=== PATIENT | female | born 1940 | race Caucasian/White ===

== ENCOUNTER 2019-06-10 18:31 | Inpatient (IN) | payer OTHER ==
[~2019-06-10] VITALS: Ht 165.1 cm; Wt 79.8 kg
[~2019-06-10 18:31] MED LIST: ATIVAN1 MG PO; CARDIZEM CD 18180 M3 PO; COZAAR 50 MG TA50 M2 PO; ENOXAPARIN40 MG/0.1 SUBQ; GABAPENTIN 100100 MG PO; HYDROCHLOROTH12.5 M1 PO; METFORMIN HCL500 MG PO; MOBIC7.5 MG PO; OMEPRAZOLE40 MG PO; OXYBUTYNIN 5 MG5 M2 PO; ZOLOFT50 MG PO
[2019-06-10 18:33] VITALS: BP 169/69
[2019-06-10 18:49] LABS: ABSOLUTE NEUTROPHILS 6.1 thou/uL (1.4-8.2); BASOPHILS 0.4 % (0.0-2.0); EOSINOPHILS 0.4 % (0.0-3.0); HEMATOCRIT 33.3 % (37.0-47.0); HEMOGLOBIN 11.2 gm/dL (12.0-15.0); LYMPHOCYTES 10.5 % (24.0-44.0); MCH 29.2 pg (26.0-34.0); MCHC 33.6 g/dL (28.0-37.0); MCV 86.9 fL (80.0-100.0); MONOCYTES 6.4 % (1.0-8.0); PLATELET COUNT 214 thou/uL (150-400); POLYS 82.3 % (36.0-66.0); RBC 3.83 mil/uL (4.20-5.00); RDW 15.1 % (10.5-14.5); WBC 7.4 thou/uL (4.0-11.0)
[2019-06-10 18:58] LABS: CALCIUM 9.5 mg/dL (8.5-10.1); CREATININE 1.9 mg/dL (0.6-1.0); POTASSIUM 3.9 mmol/L (3.5-5.1)
[2019-06-10 18:59] LABS: URINE BILIRUBIN NEGATIVE (Negative); URINE BLOOD NEGATIVE (Negative); URINE CLARITY CLEAR; URINE COLOR YELLOW; URINE GLUCOSE-RANDOM* NEGATIVE (Negative); URINE KETONES NEGATIVE (Negative); URINE LEUKOCYTES-REFLEX NEGATIVE (Negative); URINE PROTEIN (DIPSTICK) NEGATIVE (Negative); URINE UROBILINOGEN 0.2 E.U./dl (0.2-1.0)
[2019-06-10 19:00] LABS: URINE NITRITE-REFLEX POSITIVE (Negative)
[2019-06-10 19:10] LABS: BACTERIA-REFLEX >30 Many /HPF (None Seen); CASTS None Seen /LPF (None Seen); SQUAMOUS None Seen /LPF (0-3); URINE RBC None Seen /HPF (0-2); URINE WBC-REFLEX 0-5 Rare /HPF (0-5)
[2019-06-10 19:11] LABS: CRYSTALS None Seen /LPF (None Seen)
[2019-06-10 20:46] VITALS: BP 141/74
[2019-06-10 21:45] VITALS: BP 124/62
[2019-06-10 22:35] LABS: CHOLESTEROL 162 mg/dL (<200); HDL CHOLESTEROL 63 mg/dL (>40); LDL CHOLESTEROL 65 mg/dL (<100); SERUM ASSESSMENT Clear; TC:HDL 2.6 Ratio (Not establshd); TRIGLYCERIDE 170 mg/dL (<150); VLDL 34 mg/dL (<40)
[2019-06-10 23:00] LABS: FOLIC ACID 19.4 ng/mL (8.6-58.9); TSH 0.5 uIU/mL (0.358-3.740)
[2019-06-11] VITALS (7 sets, daily range): BP systolic 116–149; BP diastolic 52–71
[2019-06-11 04:34] LABS: CALCIUM 8.5 mg/dL (8.5-10.1); CREATININE 1.9 mg/dL (0.6-1.0); POTASSIUM 3.8 mmol/L (3.5-5.1)
--- NOTE | 2019-06-11 06:09 | NUR ---
RECEIVED REPORT FROM [facility] ED RN AROUND 2129.PATIENT ARRIVED TO ROOM 203 ACCOMPANIED BY HER GRANDDAUGHTER.PATIENT A/O X 4.FORGETFUL.ABLE TO WALK TO THE BATHROOM WITH STANDBY ASSIST.MONITOR SHOWS AFIB WITH RVR INITIALLY AND ON CARDIZEM GTT THEN CONVERTED TO SINUS TACHY THEN SINUS RHYTHM.AFEBRILE ALL NIGHT UNTIL THIS AM,TEMP IS 102,TYLENOL GIVEN.SPO2 88%,PLACED ON O2 2L NC.WILL CONTINUE PLAN OF CARE.
--- NOTE | 2019-06-11 10:23 | EKG ---
[address] [place] [employer] [place] [address] ELECTROCARDIOGRAM REPORT Name: YASIR YOUNGER Room #: 203-P ADM IN M.R.#: [id number] Admission: 06/10/19 Attend Phys: Bryant Dutta MD Discharge: Date of : 40 Report #: [id number] THIS REPORT FOR: //name// [facility] ED Test Date: 2019-06-10 Test Time: 19:58:17 Pat Name: YASIR YOUNGER Department: Room: 203 Gender: F Biofuels Engineering Manager: LORRAINE : 1940 Requested By: Tremaine Alvarenga Order Number: [id number] MD: Jayden Siddiqui Measurements Intervals [place] Rate: 150 P: NE: QRS: 3 QRSD: 89 T: 33 QT: 303 QTc: 479 Interpretive Statements Atrial fibrillation with rapid V-rate Poor R-wave progression Nonspecific ST segment abnormalities Compared to ECG 03/20/2016 22:46:06 Sinus rhythm no longer present First degree AV block no longer present Electronically Signed On 06-11-2019 10:23:03 GORE MAKER by Jayden Siddiqui [email or web address] <ELECTRONICALLY SIGNED> By: Jayden Siddiqui MD 11/05/20 1023 57 57 Jayden Siddiqui MD /EPI
--- NOTE | 2019-06-11 19:46 | NUR ---
ASSUMMED PT CARE AT APPROXIMATELY 0700. PT A&O X4. ASSESSMENT CHARTED. FALL PRECAUTIONS IN PLACE. PT DENIES HAVING CHEST PAIN. PT DENIES HAVING ACUTE PAIN. PT STATES SHE BECOMES SOB ON EXERSION. PT O2 SAT STABLE. BLOOD SUGARS STABLE. PT FEBRILE NEAR END OF SHIFT. GAVE PRN TYLENOL. FEBRILE AFTER TYLENOL. NOTIFIED DR. ORDERED IBUPROFEN. PT BECAME AFEBRILE AFTER IBUPROFEN. PT VITAL SIGNS STABLE. PT HAD AN INCREASE IN WEAKNESS THROUGHOUT THE SHIFT. NOTIFIED. ORDERED BLOOD CULTURES. BLOOD CULTURES DRAWN AT END OF SHIFT. COMMUNICATED WITH REFORESTATION WORKER NURSE TO MONITOR FOR THE RESULTS FOR BLOOD CULTURES. PT AND PT'S FAMILY EDUCATED ABOUT POC. PT AND PT'S FAMILY STATED UNDERSTANDING AND DENIED HAVING FURTHER QUESTIONS. PT COMFORTABLE IN BED. PT DENIES HAVING FURTHER CONCERNS. RHYTHMS STABLE AND CHARTED.
[2019-06-12] VITALS (8 sets, daily range): BP systolic 14–163; BP diastolic 67–91
--- NOTE | 2019-06-12 03:43 | NUR ---
ALERT.FORGETFUL.UP WITH ASSIST TO THE BEDSIDE COMMODE.COMPLAIN OF BURNING SENSATION WHEN URINATING.TYLENOL GIVEN.FINANCIAL INVESTMENT ADVISER WAS PAGED.WAITING FOR RESPONSE.PT WILL GO FOR A STRESS TEST TODAY.NPO SINCE MIDNIGHT.BEDTIME BLOOD GLUCOSE WAS 200.NO COVERAGE GIVEN DUE TO EPISODES OF LOW BLOOD GLUCOSE IN THE PAST ACCORDING TO THE PATIENT.MONITOR SHOWS AFIB/SINUS RHYTHM.POC CONTINUED.
[2019-06-12 04:47] LABS: CALCIUM 8.6 mg/dL (8.5-10.1); CREATININE 1.5 mg/dL (0.6-1.0); POTASSIUM 3.4 mmol/L (3.5-5.1)
--- NOTE | 2019-06-12 08:01 | HC ---
[facility] [place] [address] CONSULTATION Name: YASIR YOUNGER Room #: 203-P [facility] IN M.R.#: [id number] Admission: 06/10/19 Attend Phys: Justine Mayen Discharge: Date of : 40 Report #: [id number] THIS REPORT FOR: //name// CC: JONATAN physician/PCP Bryant Dutta DATE OF SERVICE: 06/11/2019 CARDIOLOGY CONSULTATION INDICATION: Atrial fibrillation. HISTORY OF PRESENT ILLNESS: This is a 78-year-old female with a history of diabetes mellitus, hypertension, SVT, GERD, arthritis, who presents with weakness and confusion. She has been visiting her granddaughter from [place]. Over the past several days, she has developed fever, weakness and confusion. Last week, she was very coherent and playing with her grandson. Over the weekend, she has developed weakness with change in her mental status. The patient is verbal, denies any chest pain or shortness of breath. In the ER, her rhythm was sinus, but converted to atrial fibrillation with a rapid ventricular rate. She was started on IV Cardizem. The patient is unsure if she has ever been diagnosed with AFib. She is on Cardizem, has a prior history of an SVT. PAST MEDICAL HISTORY: Diabetes mellitus, hypertension, SVT, DJD, GERD. ALLERGIES: CODEINE. MEDICATIONS: At home include Cardizem-CD 180 daily, omeprazole, Glucophage twice a day, Neurontin, losartan 50 mg daily, hydrochlorothiazide once a day. SOCIAL HISTORY: Denies tobacco use. FAMILY HISTORY: Negative for premature CAD. REVIEW OF SYSTEMS: A full 10-point review of systems was performed. Only the pertinent positives and negatives are described in the HPI. PHYSICAL EXAMINATION: VITAL SIGNS: Blood pressure is 130/60, heart rate is 80 beats per minute. GENERAL APPEARANCE: An elderly appearing female, in no acute distress. HEENT: Normocephalic, atraumatic. Oral mucosa moist. NECK: Supple. LUNGS: Clear to auscultation. CARDIAC: Regular rate and rhythm, S1, S2 positive. ABDOMEN: Soft, nontender. EXTREMITIES: Positive edema. No cyanosis. [facility] [address] [place] [address] CONSULTATION Name: YASIR YOUNGER Room #: 203-P ADM IN M.R.#: [id number] Admission: 06/10/19 Attend Phys: Justine Mayen Discharge: Date of : 40 Report #: [id number] LABORATORY VALUES: Sodium is 139, creatinine is 1.9. White count 7.4, hemoglobin is 11.2. Chest x-ray is no infiltrates. ASSESSMENT AND PLAN: 1. Atrial fibrillation, no prior history. She developed rapid atrial fibrillation while being observed in the ER. She was started on IV Cardizem and the rhythm has converted to sinus. The plan is to check a TSH level. She will need a cardiac evaluation including echocardiogram and ischemic workup. Continue with aspirin for now until her mental status returns to baseline. 2. Weakness/confusion, rule out infectious process. Urine cultures are pending. (?) Empiric antibiotics for now. 3. Hypertension, stable blood pressure. 4. Diabetes mellitus, continue with fingersticks. 5. Gastroesophageal reflux disease, continue with PPI. <ELECTRONICALLY SIGNED> By: Jayden Siddiqui MD 06/12/19 0801 1126 1802 Jayden Siddiqui MD /nt
--- NOTE | 2019-06-12 12:51 | NUR ---
DILTIAZEM DRIP INCREASED TO 20/HR FOR HR OF 138-150.
--- NOTE | 2019-06-12 15:55 | 2DMMODE ---
[facility] [address] [place] [address] 2 D/M-MODE ECHOCARDIOGRAM Name: ARENYASIR Room #: 203-P ADM IN M.R.#: [id number] Admission: 06/10/19 Attend Phys: Justine Perrin Discharge: Date of : 40 Report #: [id number] THIS REPORT FOR: //name// APPROVED REPORT Study performed: 06/12/2019 15:03:21 EXAM: Comprehensive 2D, Doppler, and color-flow Echocardiogram Patient Location: Echo lab Room #: 203 Status: routine BSA: 1.87 HR: 104 bpm BP: 163/88 mmHg Rhythm: NSR/Tachy Other Information Study Quality: Adequate Indications Atrial Fibrillation Hx: SVT, HTN, DM. 2D Dimensions RVDd: 28.66 mm IVSd: 12.00 (7-11mm) LVOT Diam: 20.77 (18-24mm) LVDd: 43.21 mm PWd: 12.19 (7-11mm) Ascending Ao: 33.76 (22-36mm) LVDs: 29.80 (25-40mm) Aortic Root: 33.06 mm Volumes Left Atrial Volume (Systole) Single Plane 4CH: 35.28 mL Single Plane 2CH: 50.43 mL LA ESV Index: 26.00 mL/m2 Aortic Valve AoV Peak Marcus.: 2.86 m/s AO Peak Gr.: 32.68 mmHg LVOT Max P.72 mmHg AO Mean Gr.: 18.90 mmHg AO V2 Mean: 2.09 m/s LVOT Max V: 1.20 m/s AO V2 VTI: 56.39 cm RAZIA Vmax: 1.42 cm2 Mitral Valve [facility] [address] [place] [address] 2 D/M-MODE ECHOCARDIOGRAM Name: YASIR YOUNGER Room #: 203-P [facility] IN ..#: [id number] Admission: 06/10/19 Attend Phys: Justine Perrin Discharge: Date of : 40 Report #: [id number] E/A Ratio: 0.8 MV Decel. Time: 106.24 ms MV E Max Marcus.: 0.99 m/s MV A Marcus.: 1.22 m/s MV PHT: 30.81 ms IVRT: 69.20 ms Pulmonary Valve PV Peak Marcus.: 1.09 m/s PV Peak Gr.: 4.77 mmHg Tricuspid Valve TR Peak Marcus.: 2.61 m/s RAP Estimate: 5.00 mmHg TR Peak Gr.: 27.27 mmHg PA Pressure: 32.00 mmHg Left Ventricle The left ventricle is normal size. There is normal LV segmental wall motion. Mild concentric left ventricular hypertrophy. Left ventricular systolic function is normal. LVEF is 60-65%. Mild diastolic dysfunction is present (impaired relaxation pattern). Right Ventricle The right ventricle is normal size. The right ventricular systolic function is normal. Atria The left atrium size is normal. The right atrium size is normal. Aortic Valve The aortic valve is normal in structure; moderately calcified. No aortic regurgitation is present. There is mild valvular aortic stenosis. Calculated aortic valve area is 1.5 cm2 with maximum pressure gradient of 33 mmHg and mean pressure gradient of 19 mmHg. Mitral Valve The mitral valve is normal in structure; mildly thickened. Mild mitral annular calcification. Trace mitral regurgitation. No evidence of mitral valve stenosis. Tricuspid Valve The tricuspid valve is normal in structure. Trace tricuspid regurgitation. Estimated PAP is 30-35mmHg. [facility] [address] [place] [address] 2 D/M-MODE ECHOCARDIOGRAM Name: YSAIR YOUNGER Room #: 203-P [facility] IN M.R.#: [id number] Admission: 06/10/19 Attend Phys: Justine Perrin Discharge: Date of : 40 Report #: [id number] Pulmonic Valve The pulmonary valve is normal in structure. There is no pulmonic valvular regurgitation. Great Vessels The aortic root is normal in size. The ascending aorta is normal in size. IVC is normal in size and collapses >50% with inspiration. Pericardium There is no pericardial effusion. <Conclusion> The left ventricle is normal size. Mild concentric left ventricular hypertrophy. Left ventricular systolic function is normal. Mild diastolic dysfunction is present (impaired relaxation pattern). The right ventricle is normal size. The left atrium size is normal. The aortic valve is normal in structure; moderately calcified. There is mild valvular aortic stenosis. Trace mitral regurgitation. Trace tricuspid regurgitation. Estimated PAP is 30-35mmHg. <ELECTRONICALLY SIGNED> By: Jayden Siddiqui MD 06/12/19 1555 1555 1555 Jayden Siddiqui MD /INF
--- NOTE | 2019-06-12 16:53 | NUR ---
ASSUMMED PT CARE AT APPROXIMATELY 0700. PT A&O X4. ASSESSMENT CHARTED. FALL PRECAUTIONS IN PLACE. PT DENIES HAVING CHEST PAIN. PT DENIES HAVING ACUTE PAIN. PT STATES SHE HAS SOB ON EXERSION. PT O2 SAT STABLE. VITAL SIGNS STABLE. BLOOD SUGARS STABLE. PT BECAME NAUSEATED DURING STRESS TEST. ANTI-EMETIC GIVEN. PT STATED NAUSEA RESOLVED. PT WENT INTO SVT DURING STRESS TEST. PT STARTED ON CARDIZEM DRIP. PT'S RHYTHM AND RATE ARE STABLE. PT AND PT'S FAMILY EDUCATED ABOUT POC. PT AND PT'S FAMILY STATED UNDERSTANDING AND DENIED HAVING FURTHER QUESTIONS. PT COMFORTABLE IN BED. PT AFEBRILE. PT DENIES HAVING FURTHER CONCERNS.
[2019-06-13] VITALS (9 sets, daily range): BP systolic 136–166; BP diastolic 60–87
[2019-06-13 05:14] LABS: CALCIUM 8.8 mg/dL (8.5-10.1); CREATININE 1.2 mg/dL (0.6-1.0); POTASSIUM 3.7 mmol/L (3.5-5.1)
--- NOTE | 2019-06-13 05:48 | NUR ---
ASSUMED PT CARE AT 1900. VSS.. PT A&0X3, SOMETIMES FORGETFULL. PT IS STEADY ON HER FEET, GETS UP WITH STANDBY TO THE BESIDE COMODE. PT WAS INITIALLY ST (LESS THAN 105) AT THE START OF THE SHIFT ON A 15ML/HR CARDIZEM DRIP HOWEVER THE NIGHT PROGRESSED, PT BECAME SR ON THE MONITOR. IN THE 70s, SO PT'S CARDIZEM TITRATED TO 10ML/HR THIS AM. PT HAD A TEMP OF 100.0 THIS AM, TYLENOL GIVEN, TO RECHECK TEMP IN AN HOUR. OTHERWISE, PT IS STABLE, NO COMPLAINTS OF PAIN OR DISCOMFORT, GOOD URINE OUTPUT, WILL CONTINUE TO MONITOR PER POC.
[2019-06-13] MEDS ORDERED: ELIQUIS5 MG PO (07:59)
[2019-06-13] MEDS ORDERED: TAMBOCOR 100 M100 M1 PO (08:00)
[2019-06-13] MEDS ORDERED: CEFUROXIME250 MG PO (08:01)
--- NOTE | 2019-06-13 09:56 | NUR ---
met with patient who reports she resides in [place] with her dtr. She is here at visiting and became weak. Her flight to return to [place] is Jun 28. At [facility] home multiple steps. Gdtr reports she is glad her heart is ok but she also brought her for weakness. patient reports last visit when she was in she broke her hip. She subsequently went to [facility] for skilled/post acute care. She reports it was good rehab. Patient to [facility] await therapy kvng.
--- NOTE | 2019-06-13 16:35 | NUR ---
spoke with therapy who reports home with HH. Sp with grandtr who is concern for dc home. Reports patient with fever last evening. She reports she is glad her heart good but concerned still confusion. Assured gdtr. Rn retook temp and updated gdtr. Gdtr reports patient has been at [facility] in past and agreeable to [facility]. Faxed referal for care. In speaking with gdtr she wants to sp with phys. Phys spoke with patients gdtr and alerted RN for dc tomorrow.
--- NOTE | 2019-06-13 17:00 | NUR ---
FAXED REFERRAL TO [facility] SPOKE WITH [facility] THEY WILL REVIEW AND WILL F/U IN THE AM. DP TO FOLLOW.
--- NOTE | 2019-06-13 18:17 | NUR ---
ASSESSMENT CHARTED. PT ALERT AND ORIENTED WITH FORGETFULNESS. VSS. DENIED HAVING PAIN OR DISCOMFORT. HAD NAUSEA X2 THIS SHIFT. PRN NAUSEA MED GIVEN WITH PARTIAL RELIEF. GILDA FIGUEROA D/C THIS AM. SR ON TELE. ORDERS GIVEN TO DISCHARGE PT TO HOME TODAY. GRANDDAUGHTER RAISED CONCERN REGARDING PT'S DISCHARGE TODAY WITHOUT EVALUATION FROM PT AND OT. MD AWARE. PLAN FOR DISCHARGE TOMORROW. NO CONCERNS AT THIS TIME. WILL CONTINUE TO MONITOR.
--- NOTE | 2019-06-13 19:21 | EKG ---
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: ALTON : 1940 Requested By: Cristi Martinez Order Number: [id number] MD: Sanjay Bower Measurements Intervals [place] Rate: 83 P: 20 OK: 182 QRS: -5 QRSD: 98 T: 44 QT: 409 QTc: 481 Interpretive Statements Sinus rhythm Probable anteroseptal infarct, old Compared to ECG 06/10/2019 19:58:17 Septal Q waves are more prominent Atrial fibrillation no longer present Electronically Signed On 06-13-2019 19:20:55 PLASTIC WELDER by Sanjay Bower [email or web address] <ELECTRONICALLY SIGNED> By: Sanjay Bower MD, [facility] 06/13/19 1920 0 Sanjay Bower MD, [facility] /EPI
[2019-06-14 04:40] VITALS: BP 175/86
--- NOTE | 2019-06-14 05:06 | NUR ---
ASSESMENT DOCUMENTED.PT BEEN RESTING THROUGH THE NOC.SR ON MONITOR TILL THIS AM AROUND 3 WHILE PT BECAME TACHYCARDIAC.VSS.PT C/O NAUSEA THAT WAS CONTROLLED WITH MEDS.HYPERTENSIVE ALONG WITH TACHYTCARDIA THIS MORNING FROM AROUND 3AM,ON EKG PT IN AFLUTTER WITH HR SUSTAINING IN 120S-130S.DIALTIZEM DOSE FOR THIS AM ADMINISTERED W/O HELPING,HR CONTINUES TO SUSTAIN IN 120S-130S,PT NOT SYMPTOMATIC,DENIES CHEST PAIN,PALPITATION OR ANY DISTRESS.DR YAGN NOTIFIED,ORDERED LOPRESSOR 5MG IV PUSH.PT ON RA W/O RESP DISTRESS.VOIDS PER BSC.IVF PER ORDERS.PT AWAKE AT THIS TIME,RESTING IN BED.WILL CONTINUES TO MONITOR PER POC.
[2019-06-14 07:53] VITALS: BP 193/100
[2019-06-14] MEDS ORDERED: GABAPENTIN 100100 MG PO (10:04)
[2019-06-14 11:17] LABS: HEMATOCRIT 32.8 % (37.0-47.0); HEMOGLOBIN 10.6 gm/dL (12.0-15.0); MCH 28.4 pg (26.0-34.0); MCHC 32.5 g/dL (28.0-37.0); MCV 87.4 fL (80.0-100.0); RBC 3.75 mil/uL (4.20-5.00); WBC 6.1 thou/uL (4.0-11.0)
[2019-06-14 11:30] LABS: CALCIUM 9.3 mg/dL (8.5-10.1); CREATININE 1.1 mg/dL (0.6-1.0); MAGNESIUM 1.5 mg/dL (1.8-2.4); PHOSPHORUS 2.9 mg/dL (2.5-4.9); POTASSIUM 3.2 mmol/L (3.5-5.1)
[2019-06-14 11:48] VITALS: BP 160/84
--- NOTE | 2019-06-14 12:23 | NUR ---
spoke with phys and gdtr. Patient with need for post acute care. interest in [facility] reviewed with gdtr qualifiers for acute rehab and requested [facility] liason review. She reports not a candidate due to no medical complexity. they are agreeable to referral to [facility]. [facility] accepting and submitting for auth.
--- NOTE | 2019-06-14 13:56 | NUR ---
FAXED REFERRAL TO [facility] RECEIVED CONFIRMATION AND LEFT MSG WITH BERTO IN ADM IF SHE CAN ACCEPT. DP TO FOLLOW.
[2019-06-14 16:00] VITALS: BP 189/89
--- NOTE | 2019-06-14 16:47 | NUR ---
ASSESSMENT CHARTED. PT ALERT AND ORIENTED WITH FORGETFULNESS. HAD HIGH BP THIS SHIFT. DR. PFEIFFER AWARE. NEW ORDERS NOTED. PLAN TO BE DISCHARGE IN AM TO REHAB. FALL PRECAUTION ENFORCED. WILL CONTINUE TO MONITOR.
[2019-06-14 19:40] VITALS: BP 159/75
[2019-06-15 02:06] LABS: GLYCOHEMOGLOBIN (HGB A1C) 6.8 % (4.8-5.6)
[2019-06-15 03:58] VITALS: BP 148/60
[2019-06-15 04:48] VITALS: BP 156/47; BP 156/474
--- NOTE | 2019-06-15 05:47 | NUR ---
ALERT,FORGETFUL.UP WITH ASSIST TO THE BEDSIDE COMMODE.DENIES PAIN.MONITOR SHOWS IN AND OUT SINUS ARHYTHMIA AND AFIB.GRANDDAUGHTER WAS CALLED LAST NIGHT FOR MED REC CLARIFICATION.UNABLE TO EDIT MED IN THE MED REC SHOWING IT CAN ONLY BE DONE ON DISCHARGE.WILL CONTINUE POC.
[2019-06-15 07:47] VITALS: BP 175/76
[2019-06-15 11:46] VITALS: BP 147/86
--- NOTE | 2019-06-15 13:06 | NUR ---
spoke with patient and gdtr. patient not stable for dc today. Malenar thought patient would dc today so she took off work. She requests caset call her once auth rec at [facility] so she can plan accordinally her work schedule. At this time [facility] does not auth.
--- NOTE | 2019-06-15 15:23 | NUR ---
FAXED CLINICAL UPDATE TO [facility] RECEIVED CONFIRMATION AND LEFT MSG WITH BERTO IN ADM WTG ON AUTH. DP TO FOLLOW.
[2019-06-15 16:00] VITALS: BP 187/89
--- NOTE | 2019-06-15 16:51 | EKG ---
[address] [address] ELECTROCARDIOGRAM REPORT Name: ELANDRO YOUNGERLEY Room #: 203-P ADM IN M.R.#: [id number] Admission: 06/10/19 Attend Phys: Justine Mayen Discharge: Date of : 40 Report #: [id number] THIS REPORT FOR: //name// [facility] Test Date: 2019-06-14 Test Time: 04:51:16 Pat Name: YASIR YOUNGER Department: Room: 203 P Gender: F Test Analyst: EDUARDA : 1940 Requested By: Yovani Armenta Order Number: [id number] MD: Sanjay Bower Measurements Intervals [place] Rate: 126 P: [place]: QRS: -16 QRSD: 89 T: 14 QT: 337 QTc: 488 Interpretive Statements Atrial flutter with predominant 2:1 AV block Anteroseptal infarct, age indeterminate Compared to ECG 06/13/2019 08:31:18 Sinus rhythm no longer present Electronically Signed On 06-15-2019 16:51:02 GROCERY STORE MANAGER by Sanjay Bower [email or web address] <ELECTRONICALLY SIGNED> By: Sanjay Bower MD, [facility] 06/15/19 1651 0451 0451 Sanjay Bower MD, [facility] /EPI
--- NOTE | 2019-06-15 17:01 | NUR ---
PT COMPLAINED OF NAUSEA WITH AMBULATION. DR PFEIFFER AWARE. GI CONSULTED. NEW ORDERS NOTED. NO CONCERNS AT THIS TIME. PROGRESSING WELL TOWARD DISCHARGE GOAL.
[2019-06-15 19:13] VITALS: BP 173/76
[2019-06-16 00:37] VITALS: BP 176/80
[2019-06-16 03:46] VITALS: BP 180/78
[2019-06-16 06:52] LABS: CALCIUM 9.1 mg/dL (8.5-10.1); CREATININE 1.1 mg/dL (0.6-1.0); MAGNESIUM 1.6 mg/dL (1.8-2.4); POTASSIUM 3.2 mmol/L (3.5-5.1)
--- NOTE | 2019-06-16 07:07 | NUR ---
ASSUME CARE 1900. PT STABLE. BP RUNS HIGH WITH HYDRALAZINE FOR CONTROL. INTRMITTENT HEADACHE. TOLERATES ACTIVITY ERLL. ADEQUAE REST NOTED THROUGH THE SHIFT. PROGRESSING WELL WITH POC. ASSESSMENT CHARTED. PLAN IS POSSIBLE DISCHARGE TODAY. WILL CONTINUE TO MONITOR AND FOLLOW WIHT POC
[2019-06-16 08:05] VITALS: BP 152/77
--- NOTE | 2019-06-16 08:13 | HC ---
[facility] [place] [address] CONSULTATION Name: ARENYASIR Room #: 203-P ADM IN M.R.#: [id number] Admission: 06/10/19 Attend Phys: Justine Mayen Discharge: Date of : 40 Report #: [id number] THIS REPORT FOR: //name// CC: FAM physician/PCP Justine Mayen DATE OF SERVICE: 06/14/2019 ENDOCRINE CONSULTATION CONSULTING PHYSICIAN: Dr. Castano. REASON FOR CONSULTATION: Uncontrolled type 2 diabetes mellitus. HISTORY OF PRESENT ILLNESS: This is a 78-year-old female patient whose medical background is significant for multiple medical issues including hypertension, type 2 diabetes mellitus as well as GERD and SVT. The patient was brought to our Emergency Department on 06/10/2019 with complaints of confusion, altered mental status as well as fever and was found eventually to have sepsis secondary to Klebsiella UTI. The patient subsequently was admitted for further care and monitoring and had encountered the issue of AFib with RVR. The patient has type 2 diabetes mellitus and had dealt with it for the past several years. She notes that she was on metformin monotherapy, but that she then requested her PCP to get her off it because she was scared once her developed kidney function issues. Then, she was on glipizide therapy and now she believes she is on glimepiride monotherapy. The patient maintains that her blood glucose control at home is fairly consistent and adequate by her fasting blood glucose ranges from 90-120 and daytime blood sugars are typically in the mid 100s. She does not have issues with hypoglycemia. The patient does report macular degeneration issues, but does not believe this is due to diabetes mellitus and is not aware of kidney function difficulties. She has intermittent numbness, tingling and altered sensation affecting her feet, but describes that as not severe and intermittent. The patient's background is also noted for hypertension that is well controlled medically. She notes that she was found in the past to have hyperlipidemia, but that she is intolerant to statins and as such has not been on treatment for that. REVIEW OF SYSTEMS: CONSTITUTIONAL: Fatigue, tiredness, fever, but no changes in body weight. HEENT: Negative for sore throat, sinus pain, ear drainage. PULMONARY: Occasional shortness of breath, cough, but no hemoptysis. CARDIAC: Palpitations, leg swelling, but no chest pain. GASTROINTESTINAL: Persistent nausea, occasional vomiting, no major changes in [address] [address] CONSULTATION Name: YASIR YOUNGER Room #: 203-P [facility] IN M.R.#: [id number] Admission: 06/10/19 Attend Phys: Justine Mayen Discharge: Date of : 40 Report #: [id number] bowel movement frequency. NEUROLOGY: Lightheadedness, dizziness, no loss of consciousness or seizures. PSYCHIATRIC: No depression, anxiety, or active hallucinations. SKIN: Negative for rash, change in color or major ulceration. Otherwise, review of systems noncontributory other than those mentioned in HPI. PAST MEDICAL HISTORY: 1. Type 2 diabetes mellitus. 2. Hypertension. 3. Hyperlipidemia. 4. Peripheral neuropathy. 5. DJD. 6. SVT. 7. Anxiety. 8. Depression. 9. GERD. 10. Overactive bladder. 11. Peripheral neuropathy. OUTPATIENT MEDICATIONS: Include diltiazem CD 1 cap daily 180 mg, oxybutynin 5 mg daily, omeprazole 40 mg daily, gabapentin 100 mg t.i.d., Zoloft 100 mg daily, losartan 100 mg daily, hydrochlorothiazide 12.5 mg daily. The medical record shows metformin 500 mg b.i.d., but again the patient believes she is on glimepiride monotherapy. ALLERGIES: The patient is intolerant TO STATINS AND CODEINE. FAMILY HISTORY: Noncontributory. SOCIAL HISTORY: The patient lives in [place] and is in [place] visiting her daughter and grandchildren. Denies use of tobacco, alcohol or illicit drugs. PHYSICAL EXAMINATION: GENERAL: Pleasant female patient who is not in apparent pain or distress. VITAL SIGNS: Blood pressure 189/89 mmHg, heart rate is 90 beats per minute, respirations 16 per minute, temperature 37.3 degrees. CONSTITUTIONAL: The patient appears comfortable, lying in bed, not in apparent distress. HEENT: Anicteric sclerae. Intact extraocular motions. NECK: Supple, without JVD, carotid bruits or lymphadenopathy. I do not appreciate thyromegaly. CHEST: Noted for moderate air entry bilaterally with scattered rales. HEART: Regular rate and rhythm without murmurs or gallops. ABDOMEN: Soft and lax without tenderness or organomegaly. She has active bowel [facility] [address] [place] [address] CONSULTATION Name: YASIR YOUNGER Room #: 203-P ADM IN M.R.#: [id number] Admission: 06/10/19 Attend Phys: Justine Mayen Discharge: Date of : 40 Report #: [id number]. EXTREMITIES: Lower extremity exam is noted for trace ankle edema. No skin breaks, ulcerations. Pedal muscles are appreciated. Sensation to light touch is moderately diminished bilaterally. NEUROLOGIC: Awake, alert and oriented to time, place and person. The remainder of her examination is nonfocal other than for the peripheral sensory deficits. SKIN: Negative for rash, ulceration or other major changes. PSYCH: Pleasant, interactive, appropriate. Normal mood and affect. LABORATORY RESULTS: Blood glucose values since arrival to [facility] have mostly been in the mid to high 100 mg/dL range. Otherwise, sodium 138, potassium 3.2, chloride 101, CO2 of 29, anion gap 8, BUN 12, creatinine 1.1. AST 21, total bilirubin 0.7, calcium 9.3, phosphorus 2.9, magnesium 1.5, alkaline phosphatase 56, ALT 8, total protein 5.8, albumin 3.0, GFR on arrival was down as low as 26 and it was at 48. Total cholesterol 162, triglycerides 170, HDL 63, LDL 65. INR 1.0. White blood count 6.1, hemoglobin 10.6, hematocrit 32.8, platelets 241. TSH 0.724. Vitamin B12 528. Hemoglobin A1c is pending. ASSESSMENT AND PLAN: 1. Type 2 diabetes mellitus. As noted above, the patient seems to have done well at home with glimepiride monotherapy. She was unable to specify the dose. The patient specifically wishes to avoid metformin due to concerns about renal function that her encountered. I counseled the patient on the relationship between metformin and kidney disease and explained that is not a causative agent of kidney function loss, but she wishes to avoid it, nonetheless. In any event, I believe that she would probably be better off without metformin given that her kidney function is in the stage 3B stage 4 segment. She would be better suited for mild sulfonylurea at a low dose with or without the addition of a DPP-4 inhibitor. While here, I will place the patient on linagliptin 5 mg daily while we maintain support by low intensity Humalog supplemental scale to be used as needed. Blood glucose monitoring will commence a.c. and at bedtime. Hemoglobin A1c was ordered and is pending at this point in time. 2. Hypertension. The patient is currently on a regimen of losartan and Lopressor. However, her blood pressure control is inadequate. I believe that the patient will be shortly evaluated by Cardiology due to atrial fibrillation with RVR. I will defer this aspect to them. 3. Hyperlipidemia. The patient noted that she was diagnosed with hyperlipidemia in the past, but that she could not tolerate statin therapy and has been off treatment since then. Her lipid panel during this hospital stay is reflective of a reasonable level of control. 4. Chronic kidney disease. 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 I certainly appreciate this consultation by [place] [address] CONSULTATION Name: YASIR YOUNGER Room #: 203-P [facility] IN M.R.#: [id number] Admission: 06/10/19 Attend Phys: Justine Mayen Discharge: Date of : 40 Report #: [id number] I have reviewed the patient's medical records, clinical care notes, and laboratory results for over 35 minutes. <ELECTRONICALLY SIGNED> By: Sloan Alvarez MD 06/16/19 0813 [id number] Sloan Alvarez MD /nt
--- NOTE | 2019-06-16 10:48 | NUR ---
All parties hoping ins auth for snf will be obtained today. [facility] has a snf bed for the pt today. Gdtr updated at bedside. Awaiting ins auth to setup dc transport and finalize her orders.
[2019-06-16 11:59] VITALS: BP 144/73
[2019-06-16] MEDS ORDERED: ASA5UEC PO (13:43)
[2019-06-16] MEDS ORDERED: LEVAQUIN 500 M500 M6 PO (13:43)
[2019-06-16] MEDS ORDERED: COZAAR100 MG PO (13:43)
[2019-06-16] MEDS ORDERED: METOPROLOL SUCC50 MG PO (13:43)
[2019-06-16] MEDS ORDERED: NORVASC5 MG PO (13:43)
[2019-06-16] MEDS ORDERED: TRADJENTA5 MG PO (13:43)
[2019-06-16 16:11] VITALS: BP 141/80
--- NOTE | 2019-06-16 17:02 | NUR ---
ASSESSMENT CHARTED. PT ALERT AND ORIENTED WITH FORGETFULNESS. REPORT FEELING MUCH BETTER TODAY. GRANDDAUGHTER UPDATED ON PT'S PROGRESS. WAITING FOR INSURANCE AUTH TO SNF. NO CONCERNS AT THIS TIME. WILL CONTINUE TO MONITOR.
[2019-06-16 19:29] VITALS: BP 149/72
--- NOTE | 2019-06-17 03:40 | NUR ---
[facility] 1900. PT/VITALS STABLLE, DENIES ANY PAIN. MODERATE TOLERANCE TO ACTIVITY. ASSESSMENT CHARTED. PROGRESSING WELL WITH POC. GIVING OFFICER WITH CONTROLLED HR NOTED ON MONITOR. PLAN IS FOR DISCHARGE TODAY PER FAMILY. FAMILY WANT TO TAKE PATIENT TODAY AND NEED HOME HEALTH FOR WEDNESDAY AT [facility] [place]. CHARGE NURSE COMMUNICATED THIS WITH [employer] FOR THE WEEK END. WILL COMMUNICATE WITH DAY NURSE TO TELL DOCTOR COVERING SO THAT ARRANGEMENTS COULD BE MADE FOR HER DISCHARGED. WILL CONTINUE TO MONITOE AND FOLLOW WITH POC.
[2019-06-17 04:44] VITALS: BP 116/80
[2019-06-17 07:25] VITALS: BP 154/76
[2019-06-17 11:25] VITALS: BP 167/76
[2019-06-17 15:26] VITALS: BP 141/65
--- NOTE | 2019-06-17 16:41 | NUR ---
ASSUMED CARE AT SHIFT CHANGE, ALERT AND ORIENTED X4 AND FOGETFUL. BP 141/70 AND OTHER VSS. DISCHARGE AND MEDICATIONS INSTRUCTIONS GIVEN TO PATIENT AND MANOLO GOETZ, VERBALIZED UNDERSTANDING AND PATIENT DICHARGED HOME.
--- NOTE | 2019-06-19 14:01 | HC ---
[facility] [address] CONSULTATION Name: YASIR YOUNGER Room #: 203-P [facility] IN M.R.#: [id number] Admission: 06/10/19 Attend Phys: Justine Mayen Discharge: 06/17/19 Date of : 40 Report #: [id number] THIS REPORT FOR: //name// CC: JONATAN physician/PCP Justine Mayen ELECTROPHYSIOLOGY CONSULTATION REASON FOR CONSULTATION: AFib. HISTORY OF PRESENT ILLNESS: The patient is a 78-year-old presenting to the hospital, not feeling well, was found to be in new onset atrial fibrillation. She did convert to sinus on her own, but had recurrence today. On telemetry, she is currently in sinus rhythm on a diltiazem drip. She denies any chest pain, shortness of breath is stable. Denies PND, orthopnea, presyncope or syncope. She underwent a nuclear stress test today, which shows normal EF, no ischemia. She underwent an echocardiogram showing normal EF and some moderate aortic stenosis. REVIEW OF SYSTEMS: A 12-point review of systems was performed, negative other than what I mentioned above. PAST MEDICAL HISTORY: Includes hypertension, diabetes, SVT, GERD. SOCIAL HISTORY: Does not smoke. FAMILY HISTORY: Noncontributory. ALLERGIES: Include CODEINE. MEDICATIONS: Have been reviewed. PHYSICAL EXAMINATION: VITAL SIGNS: Stable. GENERAL: She is in no acute distress. HEENT: Oropharynx clear. NECK: Supple, no thyromegaly. HEART: Regular rate and rhythm. LUNGS: Clear to auscultation bilaterally. ABDOMEN: Soft, nontender, nondistended with no hepatosplenomegaly. EXTREMITIES: No clubbing, cyanosis, edema. NEUROLOGIC: Cranial nerves 2-12 are intact. LABORATORY DATA: White count 7, hemoglobin 11, platelets 214. Chemistry: Sodium 139, potassium 3.4, creatinine 1.5. A 12-lead EKG showed atrial fibrillation with rapid ventricular response. Current telemetry shows sinus rhythm. [facility] [address] [place] [address] CONSULTATION Name: YASIR YOUNGER Room #: 203-P [facility] IN M.R.#: [id number] Admission: 06/10/19 Attend Phys: Justine Mayen Discharge: 06/17/19 Date of : 40 Report #: [id number] ASSESSMENT: Atrial fibrillation. PLAN: We will initiate flecainide 100 b.i.d. and Eliquis 5 mg b.i.d. We will continue to follow. <ELECTRONICALLY SIGNED> By: Cristi Martinez MD 06/19/19 1401 [id number] [id number] Cristi Martinez MD /nt
== END 2019-06-17 16:54 | disposition home or self-care (01) | DRG 871 ==
LOC: ER 18:31 → 2N 19:51 → EROBS 19:51 → 2N 21:42
PROVIDERS: Emergency Medicine; Internal Medicine; Nurse Practitioner; Nurse Practitioner Acute Care; Nurse Practitioner Family; ADMIT Hospitalist
DX: A41.9 Sepsis, unspecified organism (principal); G92 Toxic encephalopathy; N17.9 Acute kidney failure, unspecified; I48.20 Chronic atrial fibrillation, unspecified; N30.00 Acute cystitis without hematuria; I48.92 Unspecified atrial flutter; N18.4 Chronic kidney disease, stage 4 (severe); K21.9 Gastro-esophageal reflux disease without esophagitis; M19.90 Unspecified osteoarthritis, unspecified site; E11.42 Type 2 diabetes mellitus with diabetic polyneuropathy; E78.5 Hyperlipidemia, unspecified; F41.9 Anxiety disorder, unspecified; F32.9 Major depressive disorder, single episode, unspecified; E11.22 Type 2 diabetes mellitus with diabetic chronic kidney disease; I12.9 Hypertensive chronic kidney disease with stage 1 through stage 4 chronic kidney disease, or unspecified chronic kidney disease; E87.6 Hypokalemia; R29.6 Repeated falls; B96.1 Klebsiella pneumoniae [K. pneumoniae] as the cause of diseases classified elsewhere; J32.9 Chronic sinusitis, unspecified; J40 Bronchitis, not specified as acute or chronic; D63.8 Anemia in other chronic diseases classified elsewhere; Z79.899 Other long term (current) drug therapy; Z79.84 Long term (current) use of oral hypoglycemic drugs; Z88.6 Allergy status to analgesic agent; Z79.82 Long term (current) use of aspirin; Z83.71 Family history of colonic polyps
CPT/HCPCS: 10081